=== PATIENT | male | born 1970 | race Caucasian/White ===

== ENCOUNTER 2018-11-21 21:54 | Emergency (ER) | payer BC ==
[~2018-11-21] VITALS: Ht 180.3 cm; Wt 77.1 kg
[2018-11-21 22:10] VITALS: BP 123/80
--- NOTE | 2018-11-21 22:34 | NUR ---
48 Y/O MALE PRESENTS TO ED WITH C/O RIGHT LOWER BACK PAIN RADIATING DOWN RIGHT LEG. DENIES INJURY. NO HX. VSS. 11/16 PAIN. AMBULATORY WITH STEADY GAIT. NO DEFORMITIES NOTED. ER MD AWARE. CONTINUE TO MONITOR.
--- NOTE | 2018-11-21 22:34 | NUR ---
PT AMBULATED TO BED 09.
[2018-11-21] MEDS ORDERED: HYDROcodone/APAP 5/325 MG 1 TAB TAB PO ONE (23:15)
[2018-11-21] MEDS ORDERED: KETOROLAC 30 MG/ML VIAL IM ONE (23:15)
[2018-11-21] MEDS ORDERED: ONDANSETRON 4 MG ODT PO ONE (23:15)
[2018-11-22 01:08] LABS: APPEARANCE,URINE CLEAR (CLEAR); BILIRUBIN,URINE NEGATIVE (NEGATIVE); BLOOD, URINE TRACE-I (NEGATIVE); COLOR,URINE YELLOW (YELLOW); LEUKOCYTE ESTERASE ,URINE 1+ (NEGATIVE); NITRITE, URINE NEGATIVE (NEGATIVE); PH,URINE 5.5 (5.0-9.0); UGLUCOSE NEGATIVE (NEGATIVE)
[2018-11-22 01:33] VITALS: BP 123/80
--- NOTE | 2018-11-22 01:34 | NUR ---
Patient discharged with v/s stable. Written and verbal after care instructions given and explained. Patient alert, oriented and verbalized understanding of instructions. Ambulatory with steady gait. All questions addressed prior to discharge. ID band removed. Patient advised to follow up with PMD. Rx of NORCO, CIPRO, IBUPROFEN given. Patient educated on indication of medication including possible reaction and side effects. Opportunity to ask questions provided and answered.
== END 2018-11-22 01:34 | disposition home or self-care (01) ==
LOC: MED 21:54
DX: M54.41 Lumbago with sciatica, right side (principal); N39.0 Urinary tract infection, site not specified; F17.210 Nicotine dependence, cigarettes, uncomplicated
CPT/HCPCS: 81001; 87086; 96372; 99283; J1885; Q0162